=== PATIENT | female | born 1970 | race Caucasian/White ===

== ENCOUNTER → 2019-04-17 | Outpatient (CLI) | payer OTHER, SELFPAY ==
--- NOTE | 2019-04-17 10:00 | CYSPIN_PTH ---
PATIENT: JEREMIE JACKSON LOC: [facility] U#:[id number] AGE/SX: 48/F ROOM: RE04/17/[address]: Domi Trejo : 1970 BED: DIS: 04/17/2019 SPEC #: [id number] RECD: 04/18/19 08:25 STATUS: ADELIA SAMUEL #: [id number] FLORA: 04/17/19 10:[address]: Domi Trejo DEPT: CYTOLOGY RECD BY: Eugenio Moe ENTERED: 04/18/19 08:26 SP TYPE: CYSPIN FL KADY DR: MD Domi Bolden, DATABASE ADMIN-C Tissues: Urine Procedures: Pap Stain (control) Special Stain Group II Cytospin Fluid HEADER OPERATION: Not noted PRE-OP DIAGNOSIS: Microhematuria TISSUE SUBMITTED: Urine for cytology DIAGNOSIS CYTOLOGY Urine for cytology (cytospin): Negative for malignant cells. See comment. SJ:moira 04/21/19 COMMENT The specimen predominantly consists of benign squamous cells. Organisms consistent with bacteria are also noted. Clinical correlation and appropriate follow up are necessary. CYTOLOGY STUDY Slides are reviewed. CYTOLOGY GROSS Received is 75 ml of clear yellow fluid labeled with the patient's name and and designated per the requisition as urine. Submitted for cytology preparation. / moira 04/18/19 TC:5 CPT: 93512
[2019-04-17 18:29] LABS: Cytology, Body Fluid / CSF SEE PATHOLOGY REPORT
== END | disposition home or self-care (01) ==
PROVIDERS: Family Provider Family Medicine; PCP Family Medicine; Referring Provider Nurse Practitioner Adult Health
DX: R31.29 Other microscopic hematuria (principal)
CPT/HCPCS: 88108; 88313